=== PATIENT | male | born 1955 | race Caucasian/White ===

== ENCOUNTER 2018-01-10 13:39 | Outpatient (CLI) | payer OTHER ==
--- NOTE | 2018-01-10 16:13 | CT ---
CT SCAN OF CHEST WITHOUT IV CONTRAST FOR CORONARY ARTERY CALCIUM SCORING: Date: 01/10/18 HISTORY: 62-year-old male with no complaints. FINDINGS: Total coronary artery calcium score using the AJ-130 method is 24. Left main: 0 RCA: 0 LAD: 23 LCX: 1 Visualized lung jiang are clear. No pleural or pericardial effusions seen. There are degenerative ch anges in the spine. IMPRESSION: Total coronary artery calcium score is 24. POS: OFF
== END 2018-01-10 13:40 | disposition home or self-care (01) ==
LOC: BICCT 13:39
PROVIDERS: ATTEND Internal Medicine
DX: E78.00 Pure hypercholesterolemia, unspecified (principal); I10 Essential (primary) hypertension; Z82.49 Family history of ischemic heart disease and other diseases of the circulatory system
CPT/HCPCS: 75571

== ENCOUNTER 2018-12-08 09:22 | Day surgery (SDC) | payer BC ==
[2018-12-07 08:59] VITALS: BMI 30.8
[2018-12-08] MEDS ORDERED: Ketorolac Tromethamine 30 MG/ML VIAL ONE (09:35)
[2018-12-08 09:55] LABS: #Basophils 0.1 thou/uL (0.0-0.2); #Eosinphils 0.1 thou/uL (0.0-0.7); #Lymphocytes 1.8 thou/uL (1.20-3.40); #Monocytes 0.5 thou/uL (0.11-0.59); %Basophils 1.1 % (0.0-1.0); %Lymphocytes 32.9 % (21.0-51.0); %Monocytes 8.8 % (0.0-10.0); %Neutrophils 55.2 % (42.0-75.0); Hemoglobin 14.7 g/dL (14.0-18.0); Mean Corpuscular HGB CONC 33.7 g/dL (32.0-36.0); Mean Corpuscular Hemoglobin 33.4 pg (27.0-31.0); Mean Corpuscular Volume 99.1 fL (78.0-98.0); Platelet Count 216 thou/uL (130-400); RBC Distribution Width 11.7 % (11.5-14.5); Red Blood Cell (RBC) Count 4.41 mill/uL (4.70-6.10); White Blood Cell (WBC) Count 5.4 thou/uL (4.8-10.8)
[2018-12-08 10:11] LABS: Anion Gap 12 mmol/L (10-20); BUN (Urea Nitrogen) 9 mg/dL (8.4-25.7); Calc. Creatinine Clearance 122 mL/min (70-130); Calcium 9.3 mg/dL (7.8-10.44); Carbon Dioxide 26 mmol/L (23-31); Chloride 105 mmol/L (98-107); Estimated GFR-MDRD 81; Glucose 101 mg/dL (80-115); Potassium 3.6 mmol/L (3.5-5.1); Sodium 139 mmol/L (136-145)
[2018-12-08] MEDS ORDERED: Midazolam HCl 2 mg/2 ml Vial ONE (10:32)
[2018-12-08] MEDS ORDERED: Fentanyl 100 MCG/2 ML VIAL ONE (10:38)
[2018-12-08] MEDS ORDERED: Bupivacaine/Epinephrine 0.25% 30 ML VIAL ONE (11:52)
--- NOTE | 2018-12-08 12:13 | OP ---
DATE OF PROCEDURE: 12/08/2018 PREOPERATIVE DIAGNOSIS: Umbilical hernia. POSTOPERATIVE DIAGNOSIS: Umbilical hernia. PROCEDURE PERFORMED: Open repair of umbilical hernia with 4.3 cm Ventralex mesh. ANESTHESIA: General anesthesia with laryngeal mask airway per Mi Huang MD. INDICATIONS: The patient is a 63-year-old white male. He presents with a symptomatic, but fairly small umbilical hernia. He was taken to the operative room at this time for repair. DESCRIPTION OF OPERATION: Informed consent was obtained. The patient was taken to the operating room where general anesthesia was obtained with the patient in supine position. Abdomen was prepped with ChloraPrep and draped in sterile fashion. Local anesthetic was infiltrated using 0.25% Marcaine with epinephrine. A curvilinear infraumbilical incision was created and dissection carried down to the fascia. The umbilicus was dissected off the underlying fascia and hernia sac in a cephalad direction. The hernia was circumscribed with electrocautery. The contents were able to be inverted into the preperitoneal space. Blunt dissection was carried out to bluntly dissect the preperitoneal space. A 4.3 cm Ventralex mesh patch was obtained and placed in the preperitoneal space. The tails were pulled secure against the anterior abdominal wall and the tails were secured with 0 Prolene suture to the fascia superiorly and inferiorly. The lateral aspects of the defect were closed with additional sutures of 0 Prolene, incorporating bites of the anterior leaflet of the mesh. The umbilicus was secured down to the fascia with 2 interrupted sutures of 3-0 Vicryl. The wound was then closed in layers with 3-0 and 4-0 Monocryl. Additional local anesthetic was infiltrated during closure. Dermabond was placed externally. A compression dressing was applied with cotton balls and a Tegaderm dressing in the usual fashion. There were no complications. Blood loss was negligible. The patient tolerated the procedure well and was taken to recovery room in stable condition. Job ID: [id number]
[2018-12-08] MEDS ORDERED: Lidocaine 1% PF 5 ML VIAL ONE (12:36)
[2018-12-08] MEDS ORDERED: Ondansetron PF 4 MG/2 ML Vial ONE (12:36)
[2018-12-08] MEDS ORDERED: PROPOFOL 200 MG/20 ML VIAL ONE (12:36)
[2018-12-08] MEDS ORDERED: ePHEDrine 50 MG/ML VIAL ONE (12:36)
--- NOTE | 2018-12-13 10:18 | EKG ---
Test Reason : PREOP Blood Pressure : / mmHG Vent. Rate : 062 BPM Atrial Rate : 062 BPM P-R Int : 158 ms QRS Dur : 108 ms QT Int : 420 ms P-R-T Axes : 048 045 030 degrees QTc Int : 426 ms Normal sinus rhythm with sinus arrhythmia Normal ECG No previous ECGs available Confirmed by JAIME AVELAR, ALLY ([id number]) on 12/13/2018 10:18:03 AM Referred By: RAÚL Confirmed By:ALLY SANDOVAL MD
== END 2018-12-08 13:10 | disposition home or self-care (01) ==
LOC: SDC 09:22
PROVIDERS: ATTEND Specialist
PROC: 0WUF0JZ Supplement Abdominal Wall with Synthetic Substitute, Open Approach (ICD-10-PCS; principal; 2018-12-08)
DX: K42.9 Umbilical hernia without obstruction or gangrene (principal); E78.00 Pure hypercholesterolemia, unspecified; F17.200 Nicotine dependence, unspecified, uncomplicated; Z79.899 Other long term (current) drug therapy
CPT/HCPCS: 36415; 80048; 85025; 93005; 93010; J0131; J0690; J1885; J2001; J2250; J2405; J2704; J3010; J3490